=== PATIENT | male | born 2000 | race Caucasian/White ===

== ENCOUNTER 2019-01-20 10:59 | Emergency (ER) | payer SELFPAY ==
[2019-01-20] MEDS ORDERED: Lidocaine 1% w/Epinephrine 1:100K 20 ML VIAL ONE (12:31)
== END 2019-01-20 13:00 | disposition home or self-care (01) ==
LOC: ERS 10:59
DX: L02.211 Cutaneous abscess of abdominal wall (principal); F17.210 Nicotine dependence, cigarettes, uncomplicated
CPT/HCPCS: 10061; J2001

== ENCOUNTER 2019-01-23 10:25 | Emergency (ER) | payer SELFPAY | END 2019-01-23 12:05 | disposition home or self-care (01) | LOC: ERS 10:25 | DX: Z48.817 Encounter for surgical aftercare following surgery on the skin and subcutaneous tissue (principal); F17.210 Nicotine dependence, cigarettes, uncomplicated | CPT/HCPCS: 99282 ==

== ENCOUNTER 2019-10-05 09:20 | Emergency (ER) | payer SELFPAY | END 2019-10-05 10:19 | LOC: ERS 09:20 | DX: Z53.21 Procedure and treatment not carried out due to patient leaving prior to being seen by health care provider (principal) ==

== ENCOUNTER 2020-05-23 13:55 | Emergency (ER) | payer OTHER, SELFPAY ==
[2020-05-24 12:55] LABS: SARS-CoV-2 MS2 Positive; SARS-CoV-2 N Gene Negative; SARS-CoV-2 S Gene Negative; SARS-CoV-2 orf1ab Negative
== END 2020-05-23 14:30 | disposition home or self-care (01) ==
LOC: ERS 13:55
DX: Z20.828 Contact with and (suspected) exposure to other viral communicable diseases (principal); F17.210 Nicotine dependence, cigarettes, uncomplicated
CPT/HCPCS: 87635; 99283; U0003